=== PATIENT | female | born 1955 | race Asian ===

== ENCOUNTER 2016-12-02 19:36 | Emergency (ER) | payer SELFPAY ==
[~2016-12-02] VITALS: Ht 154.9 cm; Wt 49.9 kg
[2016-12-02 20:10] VITALS: BP 152/87
--- NOTE | 2016-12-02 20:44 | PHYS DOC ---
Past Medical History Past Medical History: No Pertinent History Past Surgical History: No Surgical History Additional Information: chewing tobacco Alcohol Use: None Drug Use: None Adult General Chief Complaint Chief Complaint: HEADACHE HPI HPI Patient is a 61 year old female presents emergency department stating that she is having right basilar school pain and discomfort. She denies any radiation. She states that the pain is a burning type sensation. She states that whenever she sat up she felt uncomfortable sending up straight. She denies any visual difficulty. She denies any trauma or injury. She states that she was originally seen for the pain and discomfort when she came to the [facility]. She states that that was many years ago and is unable to identify the medication that she was placed on. She denies any history of high blood pressure denies any chest pain shortness of air. All information was provided through senior climate advisor as patient does not speak [place]. Patient has taken Aleve yesterday without any relief. Review of Systems Review of Systems Constitutional: Denies fever or chills [] Eyes: Denies change in visual acuity, redness, or eye pain [] HENT: Denies nasal congestion or sore throat [] Respiratory: Denies cough or shortness of breath [] Cardiovascular: No additional information not addressed in HPI [] GI: Denies abdominal pain, nausea, vomiting, bloody stools or diarrhea [] : Denies dysuria or hematuria [] Musculoskeletal: Denies back pain or joint pain [] Integument: Denies rash or skin lesions [] Neurologic: headache, denies focal weakness or sensory changes [] Current Medications Current Medications Current Medications Medications (Trade) Dose Ordered Amg [facility] Start Time Stop Time Status Last Admin Dose Admin Acetaminophen (Tylenol) 650 mg 1X ONCE 12/02/16 20:45 12/02/16 20:46 DC 12/02/16 20:51 650 MG Allergies Allergies Allergies Coded Allergies Type Severity Reaction Last Updated Verified No Known Drug Allergies 12/02/16 No Physical Exam Physical Exam Constitutional: Well developed, well nourished, no acute distress, non-toxic appearance. [] HENT: Normocephalic, atraumatic, bilateral external ears normal, oropharynx moist, no oral exudates, nose normal. Bilateral tympanic membranes appear to be normal. Throat with no erythematous drainage or discharge. No frontal or maxillary sinus tenderness noted. Eyes: PERRLA, EOMI, conjunctiva normal, no discharge. [] Neck: Normal range of motion, no tenderness, supple, no stridor. [] Cardiovascular:Heart rate regular rhythm, no murmur [] Lungs & Thorax: Bilateral breath sounds clear to auscultation [] Skin: Warm, dry, no erythema, no rash. [] Back: No tenderness Extremities: No tenderness, no cyanosis, no clubbing, ROM intact, no edema. [] Neurologic: Alert and oriented X 3, normal motor function, normal sensory function, no focal deficits noted. Cranial nerves II through XII intact. Psychologic: Affect normal, judgement normal, mood normal. [] Current Patient Data Vital Signs Vital Signs Date Time Temp Pulse Resp B/P Pulse Ox O2 Delivery O2 Flow Rate FiO2 12/02/16 20:10 98.1 68 18 152/87 98 Room Air 98.1 EKG EKG [] Radiology/Procedures Radiology/Procedures [][facility] [address] [facility] [place] [address] IMAGING REPORT Signed PATIENT: CYNDI TERRAZAS ACCOUNT: [id number] : 1955 LOCATION: ER AGE: 61 SEX: F EXAM STATUS: REG ER ORD. PHYSICIAN: LAURITA WALDEN APRN REASON: basal skull pain and discomfort for 2 days. PROCEDURE: HEAD WO CONTRAST PROCEDURE CT head without contrast. HISTORY Basal skull pain and discomfort for [address] head was obtained. One or more of the following individualized dose reduction techniques were utilized for this exam: 1. Automated exposure control. 2. Adjustment of the mA and/or kV according to patient's size. 3. Use of iterative reconstruction technique. COMPARISON None. FINDINGS There is prominence of the ventricles and sulci, within normal limits for age. There are areas of decreased attenuation in the supratentorial white matter, nonspecific but most suggestive of minimal small vessel ischemic disease. There is no acute intracranial hemorrhage or extra-axial fluid collection. There is no mass effect or midline shift. Corrigan-white differentiation is preserved. Paranasal sinuses and mastoid air cells are clear. IMPRESSION No acute intracranial findings. Brain parenchymal volume loss and minimal probable small-vessel ischemic disease. Electronically signed by: Darrin Muniz MD (Dec 02, 2016 21:17:04) DICTATED and SIGNED BY: DARRIN MUNIZ MD DATE: 12/02/162116 CC: LAURITA WALDEN APRN; NO PCP ~ Course & Med Decision Making Course & Med Decision Making Pertinent Labs and Imaging studies reviewed. (See chart for details) CT scan of the head was negative although there was some Brain parenchymal volume loss and minimal probable small-vessel ischemic disease per radiology. Patient was provided with Tylenol here in the emergency department. She'll states that the Tylenol has not changed her headache. We'll recommend Sudafed at home. Also recommended patient to follow up with primary care physician towards the end of the week. Signs and symptoms to return back to emergency department provided. All information was provided to patient to the senior climate advisor. [] Dragon Disclaimer Dragon Disclaimer This electronic medical record was generated, in whole or in part, using a voice recognition dictation system. Departure Departure Impression: Primary Impression: Headache Disposition: 01 HOME, SELF-CARE Condition: STABLE Referrals: NO PCP (PCP) Patient Instructions: General Headache Without Cause Additional Instructions: Home to rest Tylenol or Ibuprofen for pain and discomfort May also try sudafed to help with pain and discomfort as directed by manufacture Drink plenty of fluids Followup with primary care provider in 3-5 days Return to emergency department as needed for signs and symptoms that become worse. LAURITA WALDEN APRN Dec 02, 2016 20:44
[2016-12-02] MEDS ORDERED: ACETAMINOPHEN 325 MG TABLET. PO ONE (20:45)
--- NOTE | 2016-12-02 21:18 | RAD ---
PROCEDURE CT head without contrast. HISTORY Basal skull pain and discomfort for [address] head was obtained. One or more of the following individualized dose reduction techniques were utilized for this exam: 1. Automated exposure control. 2. Adjustment of the mA and/or kV according to patient's size. 3. Use of iterative reconstruction technique. COMPARISON None. FINDINGS There is prominence of the ventricles and sulci, within normal limits for age. There are areas of decreased attenuation in the supratentorial white matter, nonspecific but most suggestive of minimal small vessel ischemic disease. There is no acute intracranial hemorrhage or extra-axial fluid collection. There is no mass effect or midline shift. Corrigan-white differentiation is preserved. Paranasal sinuses and mastoid air cells are clear. IMPRESSION No acute intracranial findings. Brain parenchymal volume loss and minimal probable small-vessel ischemic disease. Electronically signed by: Richy Muniz MD (Dec 02, 2016 21:17:04)
== END 2016-12-02 21:36 | disposition home or self-care (01) ==
LOC: ER 19:36
DX: R51 Headache (principal); F17.220 Nicotine dependence, chewing tobacco, uncomplicated
CPT/HCPCS: 70450; 99284